=== PATIENT | male | born 1990 | race Caucasian/White ===

== ENCOUNTER 2016-12-07 15:25 | Emergency (ER) | payer SELFPAY ==
[~2016-12-07] VITALS: Ht 175.3 cm; Wt 63.6 kg
[2016-12-07 15:28] VITALS: BP 125/71; TEMP 97.8
[2016-12-07] MEDS ORDERED: VENLAFAXINE225 MG PO (15:32)
[2016-12-07 17:11] LABS: HEMATOCRIT 41.2 % (42.0-52.0); HEMOGLOBIN 14.2 g/dl (13.5-18.0); MEAN CELL VOLUME 92 fl (80.0-100.0); MEAN CORPUSCULAR HEMOGLOBIN 32 pg (27.0-31.0); MEAN CORPUSCULAR HGB CONC 35 g/dl (33.0-37.0); MEAN PLATELET VOLUME 11.9 fl (7.4-10.4); PLATELET COUNT 165 K/mm3 (130-400); RED BLOOD COUNT 4.48 M/mm3 (4.20-5.60); REDCELL DISTRIBUTION WIDTH-CV 11.9 % (11.5-14.5); WHITE BLOOD COUNT 6.2 K/mm3 (4.8-10.8)
[2016-12-07 17:12] LABS: ADD PATHOLOGY DIFF REVIEW NO
[2016-12-07 17:15] LABS: CREATININE, serum 0.83 mg/dL (0.66-1.25); POTASSIUM 4.4 mmol/L (3.4-5.0)
[2016-12-07 17:25] LABS: BAND 5 % (0-10); NEUTROPHILS 64 % (42.0-75.2); PLATELET ESTIMATE NORMAL (NORMAL); TOTAL CELLS COUNTED 100
[2016-12-07 17:50] LABS: PH 6 (5-8); SQUAMOUS EPITHELIAL None Seen /hpf; URINE APPEARANCE Clear; URINE BACTERIA None Seen /hpf; URINE BILIRUBIN Negative (NEGATIVE); URINE BLOOD Negative (NEGATIVE); URINE COLOR Yellow; URINE GLUCOSE Negative (NEGATIVE); URINE KETONE Negative (NEGATIVE); URINE RBC 0-2 /hpf; URINE UROBILINOGEN >=4.0 mg/dL (NEGATIVE); URINE WBC 0-2 /hpf
[2016-12-07] MEDS ORDERED: PHENERGAN 25 TA25 MG PO (19:03)
[2016-12-07] MEDS ORDERED: ZOVIRAX400 MG PO (19:03)
[2016-12-07 19:24] VITALS: PULSE 86
[2016-12-07 20:49] LABS: CHLAMYDIA/TRACH by PCR Male Not Detected; Neisseria Gon by PCR Male Not Detected
== END 2016-12-07 19:26 | disposition home or self-care (01) ==
LOC: COL.ER 15:25
PROVIDERS: Emergency Medicine
DX: B00.2 Herpesviral gingivostomatitis and pharyngotonsillitis (principal); Z04.41 Encounter for examination and observation following alleged adult rape
CPT/HCPCS: J1885; J2550; J7030